=== PATIENT | male | born 1975 | race Caucasian/White ===

== ENCOUNTER 2021-11-20 02:23 | Outpatient (CLI) | payer OTHER, SELFPAY ==
--- NOTE | 2021-11-20 13:45 | DI.RAD_ITS ---
Exam(s) XR CHEST 2V PA LATERAL EXAM: XR CHEST 2V PA LATERAL CLINICAL HISTORY: SOB, R06.02. TECHNIQUE: 2D digital imaging was performed. COMPARISON: No exams were available for comparison FINDINGS: 2 views: Heart size is normal. The mediastinum is not widened. Lungs are clear. No infiltrates nor pleural effusions. IMPRESSION: No acute pulmonary findings. DATA REPOSITORY: RADIATION DOSE DELIVERED:
[2021-11-20] MEDS: Albuterol HFA 18 GM 200 PUFF INH IH (14:23)
[2021-11-20] MEDS: Inhaler, Assist Device 1 EACH MC (14:23)
--- NOTE | 2021-11-21 12:42 | W.PFT ---
Date of service: 11/20/21 Time of Service: 13:49 Pulmonary Function Test Result Requesting Provider Jeremy Messina Indications: Dyspnea Interpretation Spirometry: There is no airflow limitation. There is no significant bronchodilator response. Impression Normal spirometry Clinical Correlation therefore is recommended.
== END 2021-11-20 02:24 | disposition home or self-care (01) ==
PROVIDERS: Visit Provider Chiropractor
DX: R06.00 Dyspnea, unspecified (principal); R05.9 Cough, unspecified; R06.02 Shortness of breath
CPT/HCPCS: 94060; 71046